=== PATIENT | female | born 1940 | race Caucasian/White ===

== ENCOUNTER 2018-04-06 19:48 | Emergency (ER) | payer MEDICARE, BC ==
--- NOTE | 2018-04-06 20:43 | EDM.PDOC ---
ED HPI GENERAL MEDICAL PROBLEM - General Chief Complaint: Abdominal Pain Stated Complaint: ILLNESS Time Seen by Provider: 04/06/18 20:30 Source of Information: Reports: Patient, Old Records, RN History Limitations: Reports: No Limitations - History of Present Illness INITIAL COMMENTS - FREE TEXT/NARRATIVE: 77 yo female with a pHx of constipation presents with only small, hard stools since Sunday. No vomiting. Tried Dulcolax that only made her cramp. Tried an enema and got little out. No fever. Here with daughter. Onset: Gradual Onset Date: 04/02/18 Duration: Day(s):, Getting Worse Location: Reports: Abdomen Quality: Reports: Other (cramping, fullness) Severity: Moderate Improves with: Reports: None Worsens with: Reports: Other (time) Context: Reports: Other (Hx of constipation) Associated Symptoms: Reports: Loss of Appetite. 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: Other (see below) (See HPI) Abdominal Pain Score (Numeric/FACES): 2 - Related Data Allergies Allergy/AdvReac Type Severity Reaction Status Date / Time morphine Allergy Cannot Verified 04/06/18 20:31 Remember Sulfa (Sulfonamide Allergy Cannot Verified 04/06/18 20:31 Antibiotics) Remember Home Meds: Home Meds Apixaban [Eliquis] 5 mg PO BID 11/20/17 [History] Aspirin [Halfprin] 81 mg PO DAILY 11/20/17 [History] DULoxetine [Cymbalta] 90 mg PO DAILY 11/20/17 [History] Diltiazem HCl [Cardizem Cd] 180 mg PO DAILY 11/20/17 [History] Gabapentin [Neurontin] 600 mg PO BEDTIME 11/20/17 [History] Levothyroxine Sodium [Synthroid] 100 mcg PO DAILY 11/20/17 [History] Mometasone Furoate [Nasonex] 2 sprays NS DAILY 11/20/17 [History] Multivitamin with Minerals [Multiple Vitamin] 1 tab PO DAILY 11/20/17 [History] Pravastatin Sodium [Pravachol] 40 mg PO DAILY 11/20/17 [History] Apixaban [Eliquis] 2.5 mg PO BID 04/06/18 [History] Social & Family History - Caffeine Use Caffeine Use: Reports: Coffee ED ROS GENERAL - Review of Systems Review Of Systems: See Below Constitutional: Reports: No Symptoms HEENT: Reports: No Symptoms Respiratory: Reports: No Symptoms Cardiovascular: Reports: No Symptoms GI/Abdominal: Reports: Abdominal Pain (crampy), Anorexia, Constipation (small, hard stools). Denies: Black Stool, Bloody Stool, Diarrhea, Distension, Hematemesis, Hematochezia, Melena, Nausea, Vomiting : Reports: No Symptoms Musculoskeletal: Reports: No Symptoms Skin: Reports: No Symptoms Neurological: Reports: No Symptoms ED EXAM, GI/ABD - Physical Exam Exam: See Below Exam Limited By: No Limitations General Appearance: Alert, WD/WN, No Apparent Distress Eyes: Bilateral: Normal Appearance Ears: Normal External Exam, Normal Canal, Hearing Grossly Normal Nose: Normal Inspection, Normal Mucosa, No Blood Throat/Mouth: Normal Inspection, Normal Lips, Normal Oropharynx, Normal Voice, No Airway Compromise Head: Atraumatic, Normocephalic Neck: Normal Inspection Respiratory/Chest: No Respiratory Distress, Lungs Clear, Normal Breath Sounds, No Accessory Muscle Use Cardiovascular: Regular Rate, Rhythm, No Edema GI/Abdominal Exam: Soft, No Distention, Tender (mild, diffuse), Abnormal Bowel Sounds (decreased). No: Distended, Guarding, Rigid, Rebound Extremities: Normal Inspection, Normal Range of Motion, Non-Tender, No Pedal Edema Neurological: Alert, Oriented, CN II-XII Intact, Normal Cognition, No Motor/ Sensory Deficits Psychiatric: Normal Affect, Normal Mood Skin Exam: Warm, Dry, Intact, Normal Color Lymphatic: No Adenopathy Course - Vital Signs Text/Narrative:: Had only modest results after tx in the ER including walking around the dept., is tired and would like to go home to sleep. Last Recorded V/S: Last Vital Signs Temp 36.6 C 04/06/18 20:21 Pulse 66 04/06/18 22:50 Resp 18 04/06/18 22:50 BP 171/78 H 04/06/18 22:50 Pulse Ox 100 04/06/18 22:50 - Orders/Labs/Meds Orders: Active Orders 24 hr Category Date Time Status Enema [RC] ASDIRECTED Care 04/06/18 21:17 Active Abdomen 1V Flat [CR] Stat Exams 04/06/18 20:38 Taken Labs: Laboratory Tests 04/06/18 04/06/18 Range/Units 23:06 23:06 WBC 12.1 H (4.5-11.0) K/uL RBC 5.00 (3.30-5.50) M/uL Hgb 14.7 (12.0-15.0) g/dL Hct 45.4 (36.0-48.0) % MCV 91 (80-98) fL MCH 29 (27-31) pg MCHC 32 (32-36) % Plt Count 229 (150-400) K/uL Sodium 140 (140-148) mmol/L Potassium 4.4 (3.6-5.2) mmol/L Chloride 100 (100-108) mmol/L Carbon Dioxide 34 H (21-32) mmol/L Anion Gap 10.4 (5.0-14.0) mmol/L BUN 19 H (7-18) mg/dL Creatinine 1.1 H (0.6-1.0) mg/dL Est Cr Clr Drug Dosing 33.34 mL/min Estimated GFR (MDRD) 48 L (>60) Glucose 140 H (74-106) mg/dL Calcium 9.3 (8.5-10.1) mg/dL Total Bilirubin 0.4 (0.2-1.0) mg/dL AST 20 (15-37) U/L ALT 26 (12-78) U/L Alkaline Phosphatase 92 (46-116) U/L C-Reactive Protein 0.42 H (0.0-0.3) mg/dL Total Protein 7.4 (6.4-8.2) g/dL Albumin 3.6 (3.4-5.0) g/dL Globulin 3.8 H (2.3-3.5) g/dL Albumin/Globulin Ratio 1.0 L (1.2-2.2) Meds: Medications Discontinued Medications Generic Name Dose Route Start Last Admin Trade Name Freq PRN Reason Stop Dose Admin Magnesium Citrate 296 ml 04/06/18 23:58 04/07/18 00:02 Citrate Of Magnesia PO 04/06/18 23:59 296 ml ONETIME ONE Administration Ondansetron HCl 4 mg 04/06/18 21:31 04/06/18 21:35 Zofran Odt PO 04/06/18 21:32 4 mg ONETIME ONE Administration Polyethylene Glycol 34 gm 04/06/18 21:17 04/06/18 21:39 Miralax PO 04/06/18 21:18 34 gm ONETIME ONE Administration Polyethylene Glycol Confirm 04/06/18 22:06 Miralax Administered 04/06/18 22:07 Dose 17 gm .ROUTE .STK-MED ONE - Radiology Interpretation Free Text/Narrative:: Flat plate abdominal X-ray-large stool Departure - Departure Time of Disposition: 00:32 Disposition: Home, Self-Care 01 Condition: Fair Clinical Impression: Obstipation - Discharge Information *PRESCRIPTION DRUG MONITORING PROGRAM REVIEWED*: Not Applicable *COPY OF PRESCRIPTION DRUG MONITORING REPORT IN PATIENT ROBERT: Not Applicable Instructions: Constipation, Adult Referrals: Vickie Pham PA-C [Primary Care Provider] - Forms: ED Department Discharge Additional Instructions: Take Miralax as often as you need to have regular, soft stools. Drink ample fluids and get as much exercise as you can. If you have not had colonoscopy in the last 10 yrs then follow up with your provider to discuss this. Return if you start vomiting. - My Orders Last 24 Hours: My Active Orders 04/06/18 20:38 Abdomen 1V Flat [CR] Stat 04/06/18 21:17 Enema [RC] ASDIRECTED - Assessment/Plan Last 24 Hours: My Active Orders 04/06/18 20:38 Abdomen 1V Flat [CR] Stat 04/06/18 21:17 Enema [RC] ASDIRECTED
[2018-04-06] MEDS ORDERED: Polyethylene Glycol 3350 Powder 17 GM Packet PO ONE (21:17)
[2018-04-06] MEDS ORDERED: Ondansetron 4 MG Tab.DIS PO ONE (21:31)
[2018-04-06] MEDS ORDERED: Polyethylene Glycol 3350 Powder 17 GM Packet ONE (22:06)
[2018-04-06] MEDS ORDERED: Magnesium Citrate Solution 296 ML Bottle PO ONE (23:58)
--- NOTE | 2018-04-08 09:00 | CR ---
Abdomen 1V Flat CLINICAL HISTORY: Abdominal pain, cramping FINDINGS: The bowel gas pattern is nonobstructive. No abnormal masses are noted. There is moderate re tained stool throughout the colon IMPRESSION: Nonacute intestinal gas pattern Moderate fecal retention
== END 2018-04-07 00:43 | disposition home or self-care (01) ==
LOC: JP.ED 19:48
DX: K59.00 Constipation, unspecified (principal); Z79.82 Long term (current) use of aspirin; Z79.899 Other long term (current) drug therapy; Z88.2 Allergy status to sulfonamides; Z88.5 Allergy status to narcotic agent
CPT/HCPCS: 36415; 74018; 80053; 85027; 86140; 99283; 99284; A9270

== ENCOUNTER 2018-04-09 16:46 | Emergency (ER) | payer MEDICARE, BC ==
--- NOTE | 2018-04-09 18:12 | EDM.PDOC ---
ED HPI GENERAL MEDICAL PROBLEM - General Chief Complaint: Gastrointestinal Problem Stated Complaint: UNABLE TO PASS BM Time Seen by Provider: 04/09/18 18:06 Source of Information: Reports: Patient, Family, Old Records, RN Notes Reviewed History Limitations: Reports: No Limitations - History of Present Illness INITIAL COMMENTS - FREE TEXT/NARRATIVE: 77-year-old female presents to the emergency department today complaint of constipation, she's been dealing with this for some time was evaluated in the emergency department on 06 April underwent 3 enemas has been using a capFull of MiraLAX in combination with Metamucil with minimal success or relief Abdomen Pain Score (Numeric/FACES): 6 - Related Data Allergies Allergy/AdvReac Type Severity Reaction Status Date / Time morphine Allergy Cannot Verified 04/09/18 17:44 Remember Sulfa (Sulfonamide Allergy Cannot Verified 04/09/18 17:44 Antibiotics) Remember Home Meds: Home Meds Apixaban [Eliquis] 5 mg PO BID 11/20/17 [History] Aspirin [Halfprin] 81 mg PO DAILY 11/20/17 [History] DULoxetine [Cymbalta] 90 mg PO DAILY 11/20/17 [History] Diltiazem HCl [Cardizem Cd] 180 mg PO DAILY 11/20/17 [History] Gabapentin [Neurontin] 600 mg PO BEDTIME 11/20/17 [History] Levothyroxine Sodium [Synthroid] 100 mcg PO DAILY 11/20/17 [History] Mometasone Furoate [Nasonex] 2 sprays NS DAILY 11/20/17 [History] Multivitamin with Minerals [Multiple Vitamin] 1 tab PO DAILY 11/20/17 [History] Pravastatin Sodium [Pravachol] 40 mg PO DAILY 11/20/17 [History] Past Medical History HEENT History: Reports: Cataract, Hard of Hearing Cardiovascular History: Reports: Afib, High Cholesterol, Hypertension Respiratory History: Reports: Asthma, COPD, Sleep Apnea Other Respiratory History: c-pap Gastrointestinal History: Reports: Chronic Constipation, GERD, Hiatal Hernia, Irritable Bowel Syndrome Genitourinary History: Reports: Renal Calculus 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: Musculoskeletal History: Reports: Arthritis, Fracture Neurological History: Reports: TIA Psychiatric History: Reports: Depression Endocrine/Metabolic History: Reports: Hypothyroidism - Past Surgical History HEENT Surgical History: Reports: Cataract Surgery Cardiovascular Surgical History: Reports: Cardiac Ablation GI Surgical History: Reports: Appendectomy, Colonoscopy Female Surgical History: Reports: Lithotripsy/ESWL, Tubal Ligation Social & Family History - Tobacco Use Smoking Status *Q: Never Smoker - Caffeine Use Caffeine Use: Reports: Coffee - Recreational Drug Use Recreational Drug Use: No ED ROS GENERAL - Review of Systems Review Of Systems: See Below Constitutional: Reports: No Symptoms GI/Abdominal: Reports: Constipation. Denies: Flatus, Nausea, Vomiting ED EXAM, GI/ABD - Physical Exam Exam: See Below Exam Limited By: No Limitations General Appearance: Alert, Mild Distress Respiratory/Chest: No Respiratory Distress GI/Abdominal Exam: Soft, Non-Tender Rectal (Female) Exam: Normal Exam, Normal Rectal Tone. No: Fecal Impaction, Hemorrhoids, Tenderness Course - Vital Signs Last Recorded V/S: Last Vital Signs Temp 95.3 F L 04/09/18 17:43 Pulse 89 04/09/18 17:43 Resp 16 04/09/18 17:43 BP 159/83 H 04/09/18 17:43 Pulse Ox 92 L 04/09/18 17:43 - Orders/Labs/Meds Orders: Active Orders 24 hr Category Date Time Status Enema [RC] ASDIRECTED Care 04/09/18 18:42 Active Abdomen 1V Upright [CR] Stat Exams 04/09/18 18:10 Taken Meds: Medications Discontinued Medications Generic Name Dose Route Start Last Admin Trade Name Freq PRN Reason Stop Dose Admin Docusate Sodium 200 mg 04/09/18 18:42 04/09/18 19:03 Colace 50 Mg/5 Ml Liquid PO 04/09/18 18:43 200 mg NOW STA Administration Ondansetron HCl 4 mg 04/09/18 20:36 04/09/18 20:41 Zofran Odt PO 04/09/18 20:37 4 mg ONETIME ONE Administration Polyethylene Glycol 238 gm 04/09/18 18:42 04/09/18 19:04 Miralax PO 04/09/18 18:43 238 gm ONETIME ONE Administration Departure - Departure Time of Disposition: 23:25 Disposition: Home, Self-Care 01 Condition: Fair Clinical Impression: Functional constipation - Discharge Information Referrals: Vickie Pham PA-C [Primary Care Provider] - Forms: ED Department Discharge Additional Instructions: Continue to push fluids, Please followup with your primary care provider in 3- 5 days if not better, please call return to the emergency department with worsening of symptoms. - My Orders Last 24 Hours: My Active Orders 04/09/18 18:10 Abdomen 1V Upright [CR] Stat 04/09/18 18:42 Enema [RC] ASDIRECTED - Assessment/Plan Last 24 Hours: My Active Orders 04/09/18 18:10 Abdomen 1V Upright [CR] Stat 04/09/18 18:42 Enema [RC] ASDIRECTED Plan: Assessment Acuity = chronic Site and laterality = functional constipation Etiology = unknown etiology Manifestations = none Location of injury = Home Lab values = plain film of the abdomen I did review films myself I cannot appreciate any acute process, the official read from radiology is pending Plan She had some success with colonoscopy prep with MiraLAX as well as mineral oil enema, plan is to discharge home follow-up primary care in 3-5 days for reevaluation This note was dictated using [employer] voice recognition software please call with any questions on syntax or grammar.
[2018-04-09] MEDS ORDERED: Polyethylene Glycol 3350 Powder 238 GM Bot PO ONE (18:42)
[2018-04-09] MEDS ORDERED: Docusate Sodium Liquid 100 MG/10 ML UD Cup PO STA (18:42)
[2018-04-09] MEDS ORDERED: Ondansetron 4 MG Tab.DIS PO ONE (20:36)
--- NOTE | 2018-04-10 08:35 | CR ---
Abdomen 1V Upright CLINICAL HISTORY: Abdominal pain FINDINGS: The bowel gas pattern is nonobstructive. No abnormal masses are noted. There is a moderate amount of stool in the right colon. Small bowel gas is advanced into the colon. There are multiple ra diopacities overlying the pelvis which appear to be including IMPRESSION: Nonacute intestinal gas pattern Moderate fecal retention in the right colon
== END 2018-04-09 23:35 | disposition home or self-care (01) ==
LOC: JP.ED 16:46
DX: K59.04 Chronic idiopathic constipation (principal); I10 Essential (primary) hypertension; E03.9 Hypothyroidism, unspecified; Z88.2 Allergy status to sulfonamides; Z88.5 Allergy status to narcotic agent; Z79.82 Long term (current) use of aspirin
CPT/HCPCS: 74018; 99284; A9270